=== PATIENT | male | born 1995 | race Caucasian/White ===

== ENCOUNTER 2024-07-23 11:07 | Inpatient (IN) | payer OTHER ==
[~2024-07-23] VITALS: Ht 177.8 cm; Wt 53.8 kg
[2024-07-23 11:52] LABS: HEMATOCRIT 46.2 % (42.0-52.0); HEMOGLOBIN 15.3 g/dl (13.5-17.5); MEAN CORPUSCULAR HEMOGLOBIN 29.9 pg (27.0-33.0); MEAN CORPUSCULAR HGB CONC 33.1 g/dl (32.0-36.5); MEAN CORPUSCULAR VOLUME 90.2 fl (80.0-96.0); PLATELET COUNT, AUTOMATED 274 10^3/uL (150-450); RED BLOOD COUNT 5.12 10^6/uL (4.30-6.10); WHITE BLOOD COUNT 7.4 10^3/uL (4.0-10.0)
[2024-07-23 12:13] LABS: BARBITURATES URINE NEGATIVE (NEGATIVE); CANNABINOIDS URINE NEGATIVE (NEGATIVE); COCAINE METABOLITE URINE NEGATIVE (NEGATIVE); METHADONE URINE NEGATIVE (NEGATIVE); OPIATES URINE NEGATIVE (NEGATIVE); PHENCYCLIDINE URINE NEGATIVE (NEGATIVE)
[2024-07-23 12:14] LABS: BENZODIAZEPINES URINE NEGATIVE (NEGATIVE)
[2024-07-23 12:14] LABS: ETHYL ALCOHOL (ETHANOL) < 0.003 % (0.000-0.010)
[2024-07-23 12:16] LABS: ALBUMIN 4.1 G/DL (3.2-5.2); ALKALINE PHOSPHATASE 86 U/L (40-129); ALT/SGPT 19 U/L (7.0-40); AST/SGOT 11 U/L (<34); BILIRUBIN,DIRECT 0.2 MG/DL (<0.4); BILIRUBIN,TOTAL 0.6 MG/DL (0.3-1.2); BLOOD UREA NITROGEN 13 MG/DL (9-23); CALCIUM LEVEL 9.8 MG/DL (8.5-10.1); CARBON DIOXIDE LEVEL 29 MMOL/L (20-31); CHLORIDE LEVEL 107 MMOL/L (98-107); CREATININE FOR GFR 0.92 MG/DL (0.70-1.30); GLOMERULAR FILTRATION RATE > 60.0 (>60); GLUCOSE, FASTING 84 MG/DL (60-100); SALICYLATE LEVEL < 3.0 MG/DL (<30); SODIUM LEVEL 141 MMOL/L (136-145); TOTAL PROTEIN 7.3 G/DL (5.7-8.2)
[2024-07-23 12:16] LABS: AMPHETAMINES LEVEL URINE POSITIVE (NEGATIVE)
[2024-07-23] MEDS ORDERED: HOME MED LIST COMPLETE! XX SCH (13:55)
[2024-07-23 14:03] LABS: THYROID STIMULATING HORMONE 1.439 uIU/ML (0.55-4.78)
[2024-07-23] MEDS ORDERED: traZODone 50 MG TAB PO PRN (15:00)
[2024-07-23] MEDS ORDERED: MAALOX 30 ML SUSP *UDC PO PRN (15:00)
[2024-07-23] MEDS ORDERED: IBUPROFEN 400MG TAB PO PRN (15:00)
[2024-07-23] MEDS ORDERED: ACETAMINOPHEN 325 MG TAB PO PRN (15:00)
[2024-07-23] MEDS ORDERED: MOM 30ML SUSPENSION UDC PO PRN (15:00)
[2024-07-23] MEDS ORDERED: diphenhydrAMINE 25MG CAP PO PRN (15:00)
[2024-07-23 16:05] VITALS: BP 138/73; TEMP 97.3; O2SAT 99
[2024-07-23] MEDS: NICOTINE 21MG/24HR 1 EA TRANSDERMAL TD SCH (18:20)
[2024-07-24 06:25] VITALS: BP 146/77; TEMP 97.1; O2SAT 100
[2024-07-24 16:20] VITALS: BP 117/63; TEMP 98.2; O2SAT 100
[2024-07-25 06:36] VITALS: BP 119/83; TEMP 98.3; O2SAT 100
== END 2024-07-25 13:08 | disposition home or self-care (01) | DRG 755 ==
LOC: M ED 11:07 → M ED INP 14:57 → M PSY 16:06
PROVIDERS: ADMIT Psychiatry & Neurology Psychiatry; ATTEND Psychiatry & Neurology Psychiatry
DX: F43.20 Adjustment disorder, unspecified (principal); F15.90 Other stimulant use, unspecified, uncomplicated; F17.210 Nicotine dependence, cigarettes, uncomplicated